=== PATIENT | female | born 1995 | race Caucasian/White ===

== ENCOUNTER 2018-09-06 10:18 | Emergency (ER) | payer SELFPAY ==
[~2018-09-06] VITALS: Ht 144.8 cm; Wt 90.0 kg
--- NOTE | 2018-09-06 10:30 | NUR ---
PT. ARRIVES BY [facility] WITH C/O CHEST PAIN THAT BEGAN LAST NIGHT. PT. STATES THE PAIN BECAME WORSE WHILE SHE WAS WALKING AT WORK TODAY. PT.'S LUNGS ARE CTA. MM ARE PINK AND MOIST WITH PULSES +2 THROUGHOUT. PT.'S 12 LEAD EKG WAS DONE. PT. HAS THE CP MONITOR IN PLACE. PT.'S HOB IS ELEVATED GREATER THAN 30 DEGREES. PT.'S LUNGS ARE CTA. MM ARE PINK AND MOIST WITH PULSES +2 THROUGHOUT. PT. HAS THE SIDERAILS UP X [address] LIGHT IN PLACE.
[2018-09-06 11:22] LABS: BASOPHILS # (AUTO) 0.04 x10^3/uL (0-0.1); BASOPHILS % (AUTO) 0 % (0-1); EOSINOPHILS # (AUTO) 0.05 x10^3/uL (0-0.4); EOSINOPHILS % (AUTO) 1 % (1-7); LYMPHOCYTES # (AUTO) 2.31 x10^3/uL (1-3.4); LYMPHOCYTES % (AUTO) 21 % (22-44); MD NO; MEAN CORPUSCULAR HGB CONC 32.4 g/dL (32.4-35.8); MEAN CORPUSCULAR VOLUME 95.7 fL (80-100); MEAN PLATELET VOLUME 8.4 fL (7.4-10.4); MONOCYTES # (AUTO) 0.58 x10^3/uL (0.2-0.8); MONOCYTES % (AUTO) 5 % (2-9); NEUTROPHILS # (AUTO) 8.03 x10^3/uL (1.8-6.8); NEUTROPHILS % (AUTO) 73 % (42-75); PLATELET COUNT 296 x10^3/uL (130-400); RED BLOOD COUNT 4.81 x10^6/uL (3.82-5.3); RED CELL DISTRIBUTION WIDTH 13.1 % (9.6-15.2)
[2018-09-06 11:32] LABS: ANION GAP 7 mmol/L (5-15); CALCIUM 9.1 mg/dL (8.5-10.1); CHLORIDE 107 mmol/L (98-107); CREATININE 0.77 mg/dL (0.55-1.02)
[2018-09-06 11:37] LABS: TROPONIN I < 0.015 ng/mL (0.000-0.045)
--- NOTE | 2018-09-06 12:24 | NUR ---
PT. WAS GIVEN DISCHARGE INSTRUCTIONS AND A SCRIPT. UNDERSTANDING WAS VERBALIZED ALONG WITH WILLINGNESS TO COMPLY. PT. WAS AMBULATORY TO DISCHARGE WITH HER MOTHER.
[2018-09-06 12:25] VITALS: BP 110/57
== END 2018-09-06 12:28 | disposition home or self-care (01) ==
LOC: ED 11:54
DX: R07.89 Other chest pain (principal); M19.90 Unspecified osteoarthritis, unspecified site
CPT/HCPCS: 36415; 71045; 80048; 82040; 83605; 84484; 84703; 85025; 93005; 99284